=== PATIENT | female | born 1990 | race Caucasian/White ===

== ENCOUNTER 2017-06-24 19:11 | Emergency (ER) | payer MEDICAID ==
[~2017-06-24] VITALS: Ht 165.1 cm; Wt 95.5 kg
[2017-06-24 19:14] VITALS: Ht 165.1 cm; Wt 95.5 kg
[2017-06-24] MEDS ORDERED: NAPROXEN 500 MG TAB PO STA (20:40)
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
[2017-06-24] MEDS ORDERED: CYCL-319 PO (21:44)
[2017-06-24] MEDS ORDERED: IBUP-1542 PO (21:44)
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
== END 2017-06-24 21:55 | disposition home or self-care (01) ==
LOC: FTE 19:11
DX: S59.901A Unspecified injury of right elbow, initial encounter (principal); V89.2XXA Person injured in unspecified motor-vehicle accident, traffic, initial encounter
CPT/HCPCS: 73080; Z7502; Z7610